=== PATIENT | female | born 1955 | race Caucasian/White ===

== ENCOUNTER 2016-11-09 10:51 | Emergency (ER) | payer BC ==
[2009-07-10 18:38] VITALS: BMI 36.1
== END 2016-11-09 13:50 | disposition home or self-care (01) ==
LOC: D.ER 10:51
DX: S39.012A Strain of muscle, fascia and tendon of lower back, initial encounter (principal); V49.9XXA Car occupant (driver) (passenger) injured in unspecified traffic accident, initial encounter; Y93.89 Activity, other specified; Y92.89 Other specified places as the place of occurrence of the external cause; J44.9 Chronic obstructive pulmonary disease, unspecified